=== PATIENT | female | born 1995 | race Two or more races ===

== ENCOUNTER 2025-05-11 13:13 | Emergency (ER) | payer MEDICAID, OTHER ==
[~2025-05-11] VITALS: Ht 157.5 cm; Wt 63.5 kg
[2025-05-11 15:31] LABS: PLATELET COUNT (AUTO) 288 K/uL (150-450); RED BLOOD CELL COUNT(AUTO) 4.88 MIL/uL (4.0-5.2); RED CELL DISTRIBUTION WIDTH 14.8 % (11.5-15.0); WHITE BLOOD COUNT (AUTO) 7.8 K/uL (4.3-11.0)
[2025-05-11] MEDS ORDERED: MAG HYDROX/AL HYDROX/SIMETH 30 ML UDC ONE (15:32)
[2025-05-11] MEDS ORDERED: METOCLOPRAMIDE HCL 10 MG/2 ML VIAL ONE (15:32)
[2025-05-11] MEDS ORDERED: PANTOPRAZOLE 40 MG VIAL ONE (15:32)
[2025-05-11 15:44] LABS: CALCIUM, SERUM 9.1 mg/dL (8.5-10.1); CREATININE 0.7 mg/dL (0.6-1.3); SODIUM SERUM 137.0 mmol/L (136-145); UREA NITROGEN, BLOOD 22.0 mg/dL (7-18)
[2025-05-11] MEDS: IV NS 0.9% 1,000 ML BAG IV ONE (15:44)
[2025-05-11] MEDS: PANTOPRAZOLE 40 MG VIAL IV ONE (15:45)
[2025-05-11 15:50] LABS: ASPARTATE AMINOTRANSFERASE 27.0 U/L (15-37); TOTAL PROTEIN, SERUM 8.4 g/dL (6.4-8.2)
[2025-05-11] MEDS: MAG HYDROX/AL HYDROX/SIMETH 30 ML UDC PO ONE (15:52)
[2025-05-11] MEDS: METOCLOPRAMIDE HCL 10 MG/2 ML VIAL IV ONE (15:52)
[2025-05-11 15:56] LABS: APPEARANCE,URINE CLEAR (CLEAR); BLOOD, URINE Negative Ery/uL (NEGATIVE); LEUKOCYTE ESTERASE ,URINE Trace (NEGATIVE); UGLUCOSE Negative (NEGATIVE)
[2025-05-11 15:57] LABS: NITRITE, URINE NEGATIVE (NEGATIVE)
[2025-05-11 15:58] LABS: ADD URINE CULTURE YES; SQUAMOUS EPITHELIAL CELL,UR Few /HPF (None Seen)
[2025-05-11 15:59] LABS: PREGNANCY TEST URINE QUAL NEGATIVE (NEGATIVE)
[2025-05-11] MEDS ORDERED: MAG355OR18 PO (16:09)
[2025-05-11] MEDS ORDERED: NITR100C6 PO (16:09)
[2025-05-11] MEDS ORDERED: ONDA4TAB5 PO (16:09)
[2025-05-11] MEDS ORDERED: FAMO40TA7 PO (16:09)
[2025-05-11 16:39] VITALS: BP 130/70; TEMP 98.6; O2SAT 100
== END 2025-05-11 16:40 | disposition home or self-care (01) ==
LOC: ER 13:14
DX: N39.0 Urinary tract infection, site not specified (principal); R11.2 Nausea with vomiting, unspecified; R30.0 Dysuria; Z60.2 Problems related to living alone
CPT/HCPCS: 99284; 96374; 96361; 96375; 85025; 80048; 87086; 83690; 80076; 84703; 81001; 36415; J2765; J7030; J2470